=== PATIENT | female | born 1995 | race Hispanic/Latino ===

== ENCOUNTER → 2017-06-11 | Outpatient (CLI) | payer OTHER ==
--- NOTE | 2017-06-11 08:40 | Diagnostic Imaging Report ---
PROCEDURE:X-RAY PARANASAL SINUSES, COMPLETE COMPARISON:None. INDICATIONS:FACIAL SWELLING FINDINGS: The paranasal sinuses are clear. No fluid levels are identified. No expansile or destructive osseous lesions are seen. No evidence of fracture. CONCLUSION: No acute radiographic abnormalities. Dictated by: Tomas Fox M.D. on 06/11/2017 at 8:39 Electronically approved by: Tomas Fox M.D. on 06/11/2017 at 8:39
--- NOTE | 2017-06-11 08:44 | Diagnostic Imaging Report ---
PROCEDURE:X-RAY FACIAL BONES, COMPLETE COMPARISON:None. INDICATIONS:FACIAL SWELLING FINDINGS: BONES: Normal mineralization. No displaced acute fracture or dislocation. Paranasal sinuses are well aerated. Multiple dental fillings. CONCLUSION: no acute radiographic abnormalities. Dictated by: Tomas Fox M.D. on 06/11/2017 at 8:44 Electronically approved by: Tomas Fox M.D. on 06/11/2017 at 8:44
== END ==
LOC: RAD 07:41
PROVIDERS: ATTEND Internal Medicine
DX: J32.9 Chronic sinusitis, unspecified (principal)
CPT/HCPCS: 70150; 70220